=== PATIENT | female | born 1990 | race Caucasian/White ===

== ENCOUNTER → 2017-04-08 | Outpatient (CLI) | payer MEDICAID | LOC: FIMAGING 15:09 | PROVIDERS: ATTEND Internal Medicine | DX: N64.89 Other specified disorders of breast (principal) ==

== ENCOUNTER → 2017-10-15 | Outpatient (CLI) | payer MEDICAID | LOC: FIMAGING 10:17 | PROVIDERS: ATTEND Internal Medicine | DX: N60.81 Other benign mammary dysplasias of right breast (principal) ==

== ENCOUNTER → 2018-07-09 | Outpatient (CLI) | payer MEDICAID | LOC: FIMAGING 12:17 | PROVIDERS: ATTEND Physician Assistant | DX: M25.561 Pain in right knee (principal); M25.562 Pain in left knee ==